=== PATIENT | female | born 1940 | race African-American/Black ===

== ENCOUNTER 2019-08-21 06:22 | Inpatient (IN) | payer OTHER, BC ==
[2019-08-16 13:43] VITALS: BMI 31.1
[2019-08-21] MEDS ORDERED: SUCCINYLCHOLINE CHLORIDE 200 MG/10 ML SYRINGE ONE (07:07)
[2019-08-21] MEDS ORDERED: MIDAZOLAM HCL 2 MG/2 ML SINGLE DOSE VIAL ONE (07:07)
[2019-08-21] MEDS ORDERED: ONDANSETRON 4 MG/2 ML VIAL ONE (07:07)
[2019-08-21] MEDS ORDERED: PROPOFOL 20 ML ONE ×10 (07:07→10:21)
[2019-08-21] MEDS ORDERED: ROCURONIUM BROMIDE 50 MG/5 ML SYRINGE ONE (07:07)
[2019-08-21] MEDS ORDERED: DEXAMETHASONE SOD PHOSPHATE 4 MG/1 ML VIAL ONE (07:07)
--- NOTE | 2019-08-21 07:37 | HP ---
History & Physical Update - History History: No Change - Physical Physical: No Change - Assessment Assessment: No Change - Plan Plan: No Change
[2019-08-21] MEDS ORDERED: HEPARIN NA (PORCINE) 5,000 UNITS/ML 1ML VIAL ONE (07:40)
[2019-08-21] MEDS ORDERED: THROMBIN (RECOMBINANT) 5,000 UNIT VIAL TP ONE (07:40)
[2019-08-21] MEDS ORDERED: BENZOIN/ALOE VERA/STORAX/TOLU 58 ML BOTTLE ONE (08:48)
[2019-08-21] MEDS ORDERED: DESFLURANE GAS 240 ML BOTTLE IH ONE ×2 (08:49→08:50)
[2019-08-21] MEDS ORDERED: VANCOMYCIN 1,000 MG VIAL (RESTRICTED TO ID ONLY) ONE (08:51)
[2019-08-21] MEDS ORDERED: ONDANSETRON 4 MG/2 ML VIAL IVPUSH PRN ×2 (08:54→11:50)
[2019-08-21] MEDS ORDERED: morphine CARPU-JECT 2 MG/1 ML DISP.SYRIN IVPUSH PRN (11:50)
[2019-08-21] MEDS ORDERED: oxyCODONE HCL 5 MG TABLET PO PRN (11:50)
[2019-08-21] MEDS ORDERED: diazePAM 2 MG TABLET PO PRN (11:56)
[2019-08-21] MEDS ORDERED: ACETAMINOPHEN 1000 MG/100 ML VIAL (NON FORMULARY) IVPB ONE (12:00)
--- NOTE | 2019-08-21 12:04 | OP ---
Operative Note - Note: Operative Date: 08/21/19 Pre-Operative Diagnosis: cervical stenosis C4-5 and C5-6 Operation: anterior cervical disectomy and fusion of C4-5 and C5-6 Surgeon: Tremaine Crockett Acupressurist: Nancy Burris Anesthesiologist/BRADLEY LINEBACKER CREWMEMBER: Samuel Coker Anesthesia: General Estimated Blood Loss (mls): 50 Drains, Volume Out (mls): 140 (azevedo) Fluid Volume Replaced (mls): 1,000 Operative Report Dictated: Yes
[2019-08-21] MEDS ORDERED: SODIUM CHLORIDE 1,000 ML IV SCH (12:15)
--- NOTE | 2019-08-21 13:12 | HP ---
HISTORY OF PRESENT ILLNESS: 78 year-old female with a PMH significant for HTN, HLD, CKD, depression, and degenerative disc disease s/p cervical discectomy with fusion C4-C5, C5-C6 with Dr. Crockett. Recent Travel No PAST MEDICAL HISTORY: Hypertension Hyperlipidemia Chronic kidney disease, Stage 3 Degenerative disc disease Depression PAST SURGICAL HISTORY: Left breast biopsy Left shoulder rotator cuff repair Cataracts Social History: lives at home, independent ADLs, uses cane, wears hearing aides Smoking: never Alcohol: no Drugs: no Family history: Hypertension, CAD, DM, HLD Allergies No Known Allergies Allergy (Verified 08/16/19 13:25) HOME MEDICATIONS: Home Medications Medication Instructions Recorded Amlodipine Besylate 10 mg PO DAILY 08/16/19 Aspirin [ASA -] 81 mg PO DAILY 08/16/19 Citalopram Hydrobromide 20 mg PO DAILY 08/16/19 [Citalopram HBr] Donepezil HCl [Aricept] 5 mg PO DAILY 08/16/19 Losartan/Hydrochlorothiazide 1 each PO DAILY 08/16/19 [Losartan-Hctz 100-12.5 mg Tab] Memantine HCl 5 mg PO DAILY 08/16/19 Raloxifene HCl 60 mg PO DAILY 08/16/19 Tramadol HCl 50 mg PO BID 08/16/19 REVIEW OF SYSTEMS CONSTITUTIONAL: Absent: fever, chills, diaphoresis, generalized weakness, malaise, loss of appetite, weight change HEENT: Absent: rhinorrhea, nasal congestion, throat pain, throat swelling, difficulty swallowing, mouth swelling, ear pain, eye pain, visual changes CARDIOVASCULAR: Absent: chest pain, syncope, palpitations, irregular heart rate, lightheadedness , peripheral edema RESPIRATORY: Absent: cough, shortness of breath, dyspnea with exertion, orthopnea, wheezing, stridor, hemoptysis GASTROINTESTINAL: Absent: abdominal pain, abdominal distension, nausea, vomiting, diarrhea, constipation, melena, hematochezia GENITOURINARY: Absent: dysuria, frequency, urgency, hesitancy, hematuria, flank pain, genital pain MUSCULOSKELETAL: Absent: myalgia, arthralgia, joint swelling, back pain, neck pain SKIN: Absent: rash, itching, pallor HEMATOLOGIC/IMMUNOLOGIC: Absent: easy bleeding, easy bruising, lymphadenopathy, frequent infections ENDOCRINE: Absent: unexplained weight gain, unexplained weight loss, heat intolerance, cold intolerance NEUROLOGIC: Absent: headache, focal weakness or paresthesias, dizziness, unsteady gait, seizure, mental status changes, bladder or bowel incontinence PSYCHIATRIC: Absent: anxiety, depression, suicidal or homicidal ideation, hallucinations. PHYSICAL EXAMINATION Vital Signs - 24 hr 08/21/19 08/21/19 06:45 12:26 Temperature 98.7 F 97.7 F Pulse Rate 79 86 Respiratory 15 18 Rate Blood Pressure 127/77 158/63 O2 Sat by Pulse 93 L Oximetry (%) GENERAL: Awake, alert, and fully oriented, in mild distress secondary to left shoulder pain HEAD/NECK: Surgial dressing anterior neck to the right of midline c/d/i EYES: Pupils equal, round and reactive to light, extraocular movements intact, sclera anicteric, conjunctiva clear. No lid lag. EARS, NOSE, THROAT: No hoarseness, no stridor; dry mucous membranes LUNGS: Breath sounds equal, clear to auscultation bilaterally. No wheezes, and no crackles. No accessory muscle use. HEART: Regular rate and rhythm, normal S1 and S2 ABDOMEN: Soft, nontender, not distended UPPER EXTREMITIES: 2+ pulses, warm, well-perfused. No cyanosis. No clubbing. No peripheral edema. Unable to lift left arm more than 30 degrees which patient says is pre-op baseline LOWER EXTREMITIES: 2+ pulses, warm, well-perfused. No calf tenderness. No peripheral edema. NEUROLOGICAL: Cranial nerves II-XII intact. Normal speech. Pre op Hgb 12.2 BUN 30 Cr 1.5 Intra op EBL 50mL Fluids: LR 1,500mL +azevedo Cefazolin 2g x 1 ASSESSMENT/PLAN: 78 year-old female with a PMH significant for HTN, HLD, CKD, depression, and degenerative disc disease s/p cervical discectomy with fusion C4-C5, C5-C6 with Dr. Crockett. Cervical discectomy with fusion C4-C5, C5-C6 --POD #0 --perioperative antibiotics per surgery --pain management per surgery; valium q12h for muscle spasm --bowel regimen --incentive spirometry --no drains --monitor UOP Hypertension --continue amlodipine, HCTZ Hyperlipidemia --not on statin therapy CKD --check bmp in am Depression --continue citalopram, donepezil, memantine FEN Fluids: NS@75mL/hr Electrolytes: replete as indicated Nutrition: clears DVT prophylaxis: OOB, ambulation, SCDs, TEDs, ASA 81mg BID Physical therapy Dispo: continues to require inpatient care. Full code. Visit type - Emergency Visit Emergency Visit: No - New Patient This patient is new to me today: Yes Date on this admission: 08/21/19 - Critical Care Critical Care patient: No
[2019-08-21] MEDS ORDERED: ACETAMINOPHEN INJECTION 100 ML IVPB ONE (13:31)
[2019-08-21] MEDS: oxyCODONE HCL 5 MG TABLET PO PRN ×3 (15:31→23:56)
[2019-08-21] MEDS: CEFAZOLIN 1 GM/D5W 1 GRAM/50 ML BAG IVPB SCH (17:02)
[2019-08-21] MEDS: ACETAMINOPHEN 500 MG TABLET (FP) PO SCH (20:30)
[2019-08-21] MEDS ORDERED: DEXAMETHASONE SOD PHOSPHATE 10 MG/1 ML VIAL IVPB ONE (22:00)
[2019-08-21] MEDS: diazePAM 2 MG TABLET PO SCH (23:56)
[2019-08-22] MEDS: CEFAZOLIN 1 GM/D5W 1 GRAM/50 ML BAG IVPB SCH (02:48)
[2019-08-22] MEDS: ACETAMINOPHEN 500 MG TABLET (FP) PO SCH ×2 (02:50→07:58)
[2019-08-22] MEDS: oxyCODONE HCL 5 MG TABLET PO PRN (04:38)
[2019-08-22 07:52] LABS: BASO % 0.2 % (0-2.0); HEMATOCRIT 33.8 % (32.4-45.2); HEMOGLOBIN 11.4 GM/dl (10.7-15.3); LYMPH % 5.4 % (8-40); MCH 29.7 pg (25.7-33.7); MCHC 33.7 g/dl (32.0-36.0); MEAN CELL VOLUME 87.9 fl (80-96); MEAN PLT VOLUME 10.1 fl (7.5-11.1); MONO % 5.3 % (3.8-10.2); NEUT % 89.1 % (42.8-82.8); PLATELET COUNT 197 K/MM3 (134-434); RBC 3.84 M/mm3 (3.60-5.2); RDW 12.5 % (11.6-15.6); WHITE BLOOD COUNT 14.5 K/mm3 (4.0-10.8)
[2019-08-22 08:00] LABS: CREATININE 1.5 mg/dl (0.55-1.3); POTASSIUM 4.1 mmol/L (3.5-5.1)
--- NOTE | 2019-08-22 08:17 | PN ---
Physical Exam: SUBJECTIVE: Patient seen and examined OBJECTIVE: Vital Signs Period Temp Pulse Resp BP Sys/Pettit Pulse Ox Last 24 Hr 97.7 F-99.9 F 74-98 12-20 136-168/57-79 93-100 GENERAL: The patient is awake, alert, and fully oriented, in no acute distress. HEAD: Normal with no signs of trauma. EYES: PERRL, extraocular movements intact, sclera anicteric, conjunctiva clear. No ptosis. ENT: Ears normal, nares patent, oropharynx clear without exudates, moist mucous membranes. NECK: Trachea midline, full range of motion, supple. LUNGS: Breath sounds equal, clear to auscultation bilaterally, no wheezes, no crackles, no accessory muscle use. HEART: Regular rate and rhythm, S1, S2 without murmur, rub or gallop. ABDOMEN: Soft, nontender, nondistended, normoactive bowel sounds, no guarding, no rebound, no hepatosplenomegaly, no masses. EXTREMITIES: 2+ pulses, warm, well-perfused, no edema. NEUROLOGICAL: Cranial nerves II through XII grossly intact. Normal speech, gait not observed. PSYCH: Normal mood, normal affect. SKIN: Warm, dry, normal turgor, no rashes or lesions noted Laboratory Results - last 24 hr 08/22/19 07:28 WBC 14.5 H RBC 3.84 Hgb 11.4 Hct 33.8 MCV 87.9 MCH 29.7 MCHC 33.7 RDW 12.5 Plt Count 197 MPV 10.1 Absolute Neuts (auto) 12.9 Neutrophils % 89.1 H Lymphocytes % 5.4 L Monocytes % 5.3 Eosinophils % 0.0 Basophils % 0.2 Active Medications Generic Name Dose Route Start Last Admin Trade Name Freq PRN Reason Stop Dose Admin Acetaminophen 1,000 mg 08/21/19 20:30 08/22/19 07:58 Tylenol - PO 08/22/19 08:31 1,000 mg Q6H FREDRICK Administration Amlodipine Besylate 10 mg 08/22/19 10:00 Norvasc - PO DAILY FREDRICK Citalopram Hydrobromide 20 mg 08/22/19 10:00 Celexa - PO DAILY FREDRICK Dexamethasone Sodium Phosphate 6 mg 08/22/19 10:00 Decadron Injection - IVPB 08/22/19 10:01 ONCE ONE Diazepam 2 mg 08/21/19 23:17 08/21/19 23:56 Valium - PO 2 mg Q12H FREDRICK Administration Donepezil HCl 5 mg 08/22/19 22:00 Aricept - PO HS [facility] Hydrochlorothiazide 12.5 mg 08/22/19 10:00 Hctz - PO DAILY [facility] Sodium Chloride 1,000 mls @ 75 mls/hr 08/21/19 12:15 08/21/19 14:39 Normal Saline - IV 0 mls ASDIR FREDRICK Administration Losartan Potassium 100 mg 08/22/19 10:00 Cozaar - PO DAILY [facility] Memantine 5 mg 08/22/19 10:00 Namenda - PO DAILY [facility] Morphine Sulfate 2 mg 08/21/19 11:50 08/21/19 20:29 Morphine Injection - IVPUSH 2 mg Q6H PRN Administration PAIN LEVEL 7 - 10 Non-Formulary Medication 60 mg 08/22/19 10:00 Raloxifene Hcl [Raloxifene Hcl] PO DAILY [facility] Ondansetron HCl 4 mg 08/21/19 11:50 Zofran Injection IVPUSH Q6H PRN NAUSEA AND/OR VOMITING Oxycodone HCl 5 mg 08/21/19 11:50 Roxicodone - PO Q4H PRN PAIN LEVEL 1-5 Oxycodone HCl 10 mg 08/21/19 11:50 08/22/19 04:38 Roxicodone - PO 10 mg Q4H PRN Administration PAIN LEVEL 6-10 Senna/Docusate Sodium 2 tablet 08/22/19 22:00 Pericolace - PO 08/22/19 23:19 HS [facility] ASSESSMENT/PLAN:
--- NOTE | 2019-08-22 09:47 | OP ---
DATE OF OPERATION: DATE OF DICTATION: 08/21/2019 SURGEON: Tremaine Crockett MD PREOPERATIVE DIAGNOSIS: C4-C5 anterolisthesis with spinal stenosis. POSTOPERATIVE DIAGNOSIS: C4-C5 disk prolapse with anterolisthesis C4-C5 and associated C5-C6 disk prolapse with spinal stenosis and associated radiculomyelopathy. ANESTHESIA: General. OPERATION PERFORMED: Original plan was for a C4-C5 anterior cervical diskectomy and fusion. This was changed as follows: 1. C4-C5 anterior cervical diskectomy and fusion. 2. C5-C6 anterior cervical diskectomy and fusion. 3. Partial corpectomy C4, C5 and C6. 4. Insertion of cage, C4-C5 and C5-C6. 5. Anterior arthrodesis, C4-C5 and C5-C6. 6. Anterior plating, C4, C5, C6. ANTIBIOTICS GIVEN: Ancef 2 g. MEDICATIONS: Decadron 10 mg given. DESCRIPTION OF PROCEDURE: The patient was correctly identified and brought to the operating room supine on the operating room table. Bolster placed behind the scapulae. Prior to positioning of the patient, baseline motor evoked potentials and SSEP readings with the neuromonitoring team captured and then positioned the patient with arms taped appropriately and the head extended, brought about no change in SSEP and neuromonitoring findings. Draping with appropriate Betadine scrub solution, wiped with alcohol, DuraPrep applied. The prepping was with a window drape. The incision was made, after time-out was called and imaging was available for intraoperative evaluation, with an oblique incision centered over the cricothyroid interval. The dissection was taken with the platysma being split longitudinally. The subfascial plane entered with finger dissection lateral to the strap muscles. The pharynx and larynx were retracted to the left and the carotid sheath to the right. A peanut helped develop the plane. The prevertebral fascia was opened, and this gave easy access to the C4-C5 and C5-C6 disks. The original plan was a C4-C5 diskectomy, but because of the findings intraoperatively, with a massive osteophyte, which was calcified, and review of the MR scan, it was elected to go ahead and deal with both disks, as one would not have been adequate in solving her clinical problem, which was a C6 radiculopathy. Using an appropriate sarah-tipped bur, the disks of C4-C5 and C5-C6 were dealt with in an identical manner. The disks were resected using curettes. The dissection was taken right down to the theca. The posterior longitudinal ligament transected from left to right at each level, freeing the theca completely, undercutting the undersurface of bone in order to gain access to all the nerve roots appropriately. This gave access to the C4, C5 and C6 nerve roots. A [place] distractor device was utilized. The cage seated at C5-C6 measured 8 x 24. This was a 40 length spacer, filled with bone biologic putty. The C4-C5 disk measured size 7 mm, and an appropriate putty inserted into that disk space as well. Once release of the traction device was performed, the ligamentotaxis captured the cages appropriately. Solid fixation achieved. Onto that, a Precision 29-mm plate was seated. A solid fixation achieved at C4, C5 and C6, thus completing an anterior arthrodesis as well as plating at the C4, C5, C6 level with cages well inserted. The appropriate bone osteophyte of the disc osteophyte complex was removed with the disk, thus performing diskectomies and appropriate partial corpectomies at C4, C5 and C6. No complications. Washout with saline throughout the procedure. The closure was as follows: The investing layer of fascia 2-0 Vicryl, subcutaneous 2-0 Vicryl, skin 3-0 Monocryl and Steri-Strips. MD DEYVI Corona/[id number] MTDD
[2019-08-22] MEDS ORDERED: CITALOPRAM HYDROBROMIDE 20 MG TABLET (FP) PO SCH (10:00)
[2019-08-22] MEDS ORDERED: LOSARTAN POTASSIUM 50 MG TABLET (FP) PO SCH (10:00)
[2019-08-22] MEDS ORDERED: amLODIPine BESYLATE 10 MG TABLET (FP) PO SCH (10:00)
[2019-08-22] MEDS ORDERED: MEMANTINE HCL 5 MG TABLET (UD) PO SCH (10:00)
[2019-08-22] MEDS ORDERED: PATIENT'S OWN MEDICATION (NON-FORMULARY) (Raloxifene Hcl [Raloxifene Hcl] 60 MG) PO SCH (10:00)
[2019-08-22] MEDS ORDERED: HYDROCHLOROTHIAZIDE 12.5 MG CAPSULE (FP) PO SCH (10:00)
[2019-08-22] MEDS ORDERED: DEXAMETHASONE SOD PHOSPHATE 10 MG/1 ML VIAL IVPB ONE (10:00)
[2019-08-22] MEDS ORDERED: PATIENT'S OWN MEDICATION (NON-FORMULARY) (Losartan/Hydrochlorothiazide [Losartan-Hctz 100- PO SCH (10:00)
[2019-08-22] MEDS: diazePAM 2 MG TABLET PO SCH (10:30)
--- NOTE | 2019-08-22 10:45 | PN ---
Progress Note (short form) - Note Progress Note: 78F POD#1 for ACDF under [place]. Pt. doing well this am. No anesthesia related complications. Pain adequately controlled. Continue management per primary team.
[2019-08-22] MEDS ORDERED: BENZOCAINE/MENTH/CETYLPYRD CL 1 EACH LOZENGE MM PRN (13:19)
--- NOTE | 2019-08-22 13:25 | PN ---
Progress Note (short form) - Note Progress Note: POD#1 Pt complains of some throat pain, painful swallowing tolerated clears and oral medications. Having pain in upper shoulders. No Cp or SOB. Vital Signs Period Temp Pulse Resp BP Sys/Pettit Pulse Ox Last 24 Hr 98.3 F-99.9 F 86-98 16-19 136-154/61-67 95-100 GEN:A&0x23 NAD Neck: supple, dressing c/d/i. No masses and the neck is soft. No stridor. Voice somewhat of a whisper but improves during conversation and becomes louder. CV: RRRR Lungs: CTA b/l Neuro: highway patrol commander strength equal b/l, 5/5 flexion/extension to upper ext b/l. dorsi/ plantar flexion 5/5 b/l. CBC, BMP 11/07/19 07:28 11/07/19 07:28 A/p: 78 yo female s/p ACDF C4-5 and C5-6, POD#1 D/w Dr. Crockett and will plan for dishcharge today if able to tolerate soft diet PT given decadron x1 this am again Pain management with oral medications Care plan d/w the medical team. Pt requesting possible help at home, case managment consult placed OOB and ambulate with PT
[2019-08-22 14:08] VITALS: BP 152/67; PULSE 86; TEMP 98.6
--- NOTE | 2019-08-22 15:19 | DS ---
"Physical Exam: SUBJECTIVE: Patient seen and examined OBJECTIVE: Vital Signs Period Temp Pulse Resp BP Sys/Pettit Pulse Ox Last 24 Hr 98.3 F-99.9 F 86-98 16-19 136-154/61-67 95-100 PHYSICAL EXAM GENERAL: Awake, alert, and fully oriented, in no acute distress HEAD/NECK: Surgial dressing anterior neck to the right of midline c/d/i LUNGS: Breath sounds equal, clear to auscultation bilaterally. No wheezes, and no crackles. No accessory muscle use. HEART: Regular rate and rhythm, normal S1 and S2 ABDOMEN: Soft, nontender, not distended UPPER EXTREMITIES: 2+ pulses, warm, well-perfused. No cyanosis. No clubbing. No peripheral edema. Able to lift left arm to 45 degress, improved LOWER EXTREMITIES: 2+ pulses, warm, well-perfused. No calf tenderness. No peripheral edema. NEUROLOGICAL: Cranial nerves II-XII intact. Normal speech. LABS Laboratory Results - last 24 hr 08/22/19 08/22/19 07:28 07:28 WBC 14.5 H RBC 3.84 Hgb 11.4 Hct 33.8 MCV 87.9 MCH 29.7 MCHC 33.7 RDW 12.5 Plt Count 197 MPV 10.1 Absolute Neuts (auto) 12.9 Neutrophils % 89.1 H Lymphocytes % 5.4 L Monocytes % 5.3 Eosinophils % 0.0 Basophils % 0.2 Sodium 138 Potassium 4.1 Chloride 104 Carbon Dioxide 24 Anion Gap 10 BUN 22.0 H Creatinine 1.5 H Est GFR (CKD-EPI)AfAm 37.74 Est GFR (CKD-EPI)NonAf 32.56 Random Glucose 149 H Calcium 9.0 HOSPITAL COURSE: Date of Admission:08/21/19 Date of Discharge: 08/22/19 Pre hospital course 78 year-old female with a PMH significant for HTN, HLD, CKD, depression, and degenerative disc disease s/p cervical discectomy with fusion C4-C5, C5-C6 with Dr. Crockett. Hospital course Cervical discectomy with fusion C4-C5, C5-C6 --perioperative antibiotics complete --tolerating regular diet --pain well-managed with PO meds Hypertension --continued amlodipine, HCTZ Hyperlipidemia --not on statin therapy CKD --Cr 1.5 Depression --continuedcitalopram, donepezil, memantine Minutes to complete discharge: 35 Discharge Summary Problems reviewed: Yes Reason For Visit: CERVICAL DISC DISORDER Condition: Improved - Instructions Diet, Activity, Other Instructions: Post-operative Instructions Wound Keep your dressing clean and dry and in place. Do not remove unless it becomes dirty, if this happens you should call the office prior to removing the dressing. Do not shower until you are cleared by your surgeon. Sponge bathe only. Do not swim or soak in water (bath/hot tub, etc) until cleared by your surgeon as this can lead to infection. Do not put creams or ointments on the wound for at least 4 weeks. Diet Cold liquids/foods (like ice chips, pudding, yogurt, ice cream, popsicles) are recommended initially then progress slowly to advance diet. Avoid hot foods for at least the first several days after surgery. A sensation of having a lump in your throat is normal. This may make it feel uncomfortable to swallow large bites of solid food. You should take small bites, chew well, and/or eat soft foods until this resolves. Make sure to increase your fiber intake and drink plenty of fluids (unless you have fluid restrictions due to a medical condition), to prevent constipation which is a side affect of narcotic pain medication. You may also take a stool softener such as Dulcolax. Collar/DME You will be given a collar after surgery. This is to be worn for your comfort. Pain Relief Take pain medication as prescribed. DO NOT EVER DRIVE OR OPERATE HEAVY MACHINERY WHILE TAKING NARCOTIC PAIN MEDICATION. The pain medication you have been prescribed for pain contains Acetaminophen (Tylenol), if you take additional Tylenol, it is recommended that you keep track of your total Tylenol intake (Including the 325mg in each Percocet). You should not exceed more than 4g (4000mg) of Tylenol in 24 hours as this can lead to liver damage or failure. No anti-inflammatory medications (NSAIDs: Motrin, Ibuprofen, Excedrin, Advil , Aspirin, etc) for 3 months following surgery. Use of these medications could delay the healing of your fusion. Exercise/Activity Avoid riding in a car for 2 weeks unless medically necessary. The best exercise is walking. Small amounts done frequently are best. Try to set a goal of one mile per day total. It is best to stay mobile to avoid development of blood clots in your legs. Repetitive activities using your arms may aggravate muscle spasms around your neck and upper back. Modify your activity with this in mind. Do not lift your arms above your head for the first 8 weeks after surgery. It is okay to raise your arms to comb and wash your hair once you are cleared to shower. Do not lift more than 5 lbs for the first 8 weeks after surgery. Avoid stairs while you are wearing your collar they are a fall hazard. NO running. You may use a treadmill to walk, with no incline. Use with caution. You may sleep on your side or back but NOT on your stomach as long as your cervical is securely in place. Many patients find comfort in a reclining chair. You may NOT drive until cleared by your surgeon. You may be a passenger for a short time (20 - 30 minutes) until you are able to tolerate longer distances. No sexual activity until discussed with your spine surgeon. DO NOT SMOKE. This increases the chance that your bone will not heal properly. See your primary care physician if you need assistance to quit smoking. Follow-up Please call the office to schedule your follow up appointment in 1 week. Call your doctors office or go to the ER immediately if you develop: Trouble breathing, chest tightness or shortness of breath Oral temperature greater than 100.5 F Excessive redness, swelling, or drainage at the incision site, particularly swelling around the neck incision. Foul odor from the incision. New, increasing pain/numbness/weakness in your arms/legs This report was requested by: Nancy Burris | Reference #: [id number] Referrals: Jas Crockett MD [Staff Physician] - Disposition: HOME - Home Medications Comprehensive Discharge Medication List: Ambulatory Orders Amlodipine Besylate 10 mg PO DAILY 08/16/19 Aspirin [ASA -] 81 mg PO DAILY 08/16/19 Citalopram Hydrobromide [Citalopram HBr] 20 mg PO DAILY 08/16/19 Donepezil HCl [Aricept] 5 mg PO DAILY 08/16/19 Losartan/Hydrochlorothiazide [Losartan-Hctz 100-12.5 mg Tab] 1 each PO DAILY 11/03 Memantine HCl 5 mg PO DAILY 08/16/19 Raloxifene HCl 60 mg PO DAILY 08/16/19 Tramadol HCl 50 mg PO BID 08/16/19 This patient is new to me today: No Emergency Visit: No Critical Care patient: No - Discharge Referral Referred to [facility] No"
--- NOTE | 2019-08-22 16:18 | PATH ---
Surgical Pathology Report Patient Name: XI KELLY Med. Rec. #: [id number] /Age/Gender: 1940 (Age: 78) / F Account: [id number] Location: [facility] Taken: 08/21/2019 Received: 08/21/2019 Reported: 08/22/2019 Physicians: Tremaine Crockett M.D. Specimen(s) Received CERVICAL DISC C4-C6 Clinical History Cervical disc disorder Final Diagnosis C4-C6 CERVICAL DISC, DISCECTOMY: FRAGMENTS OF BONE AND CARTILAGINOUS TISSUE WITH FOCAL DEGENERATIVE CHANGE. Electronically Signed Soham Matute M.D. Gross Description Received in formalin labeled "C4-C6 cervical disc," is a 2.5 x 2.0 x 0.3 cm aggregate of casanova fragments of fibrocartilaginous tissue. A entry level account representative portion is submitted in one cassette. /08/21/2019 saudi08/21/2019
[2019-08-22] MEDS ORDERED: DONEPEZIL HCL 5 MG TABLET (FP) PO SCH (22:00)
[2019-08-22] MEDS ORDERED: SENNOSIDES/DOCUSATE COMBO (SENNA PLUS) TABLET (UD) PO SCH (22:00)
== END 2019-08-22 14:10 | disposition home or self-care (01) | DRG 472 ==
LOC: FM/S 06:22 → EDSTATUS 10:00 → FM/S 15:48
PROVIDERS: ADMIT Orthopaedic Surgery Orthopaedic Surgery of the Spine; ATTEND Nurse Practitioner Acute Care
PROC: 0RT30ZZ Resection of Cervical Vertebral Disc, Open Approach (ICD-10-PCS; 2019-08-21)
PROC: 01N10ZZ Release Cervical Nerve, Open Approach (ICD-10-PCS; 2019-08-21)
PROC: 4A10X4G Monitoring of Central Nervous Electrical Activity, Intraoperative, External Approach (ICD-10-PCS; 2019-08-21)
PROC: 0RG20A0 Fusion of 2 or more Cervical Vertebral Joints with Interbody Fusion Device, Anterior Approach, Anterior Column, Open Approach (ICD-10-PCS; principal; 2019-08-21 09:23)
DX: M50.121 Cervical disc disorder at C4-C5 level with radiculopathy (principal); M50.021 Cervical disc disorder at C4-C5 level with myelopathy; M50.022 Cervical disc disorder at C5-C6 level with myelopathy; M48.02 Spinal stenosis, cervical region; M50.321 Other cervical disc degeneration at C4-C5 level; M50.221 Other cervical disc displacement at C4-C5 level; M50.322 Other cervical disc degeneration at C5-C6 level; E78.5 Hyperlipidemia, unspecified; I12.9 Hypertensive chronic kidney disease with stage 1 through stage 4 chronic kidney disease, or unspecified chronic kidney disease; N18.3 Chronic kidney disease, stage 3 (moderate); M50.122 Cervical disc disorder at C5-C6 level with radiculopathy; F32.9 Major depressive disorder, single episode, unspecified
CPT/HCPCS: 36415; 72050-TC-FY; 80048; 85025; 94760; 97116-GP; 97162-GP; J0131; J1100; J1644; J7030